=== PATIENT | female | born 1960 | race Hispanic/Latino ===

== ENCOUNTER 2017-06-04 15:16 | Outpatient (CLI) | payer OTHER ==
--- NOTE | 2017-06-04 16:26 | RAD ---
CHEST PA AND LATERAL: History: 56-year-old female with chest pain. Comparison: 09-23-13 FINDINGS: Minimal cardiomegaly. No confluent pneumonia, overt edema, or pleural effusion. IMPRESSION: No acute intrathoracic disease. Minimal cardiomegaly. No evidence for edema, pleural effusion or othe r acute process. POS: [facility]
== END 2017-06-04 15:17 | disposition home or self-care (01) ==
LOC: RAD-FRANK 15:16
PROVIDERS: ATTEND Nurse Practitioner Family
DX: R07.9 Chest pain, unspecified (principal)
CPT/HCPCS: 71046

== ENCOUNTER 2017-10-30 09:44 | Outpatient (CLI) | payer OTHER ==
--- NOTE | 2017-10-30 11:42 | RAD ---
TWO VIEW CHEST: Indication: Cough. Comparison: 06-04-17 FINDINGS: Heart is mildly prominent. Vascular markings are upper normal but stable. No focal infiltrate. No eff usion. Osseous structures are unremarkable with mild degenerative changes in the spine. IMPRESSION: No acute finding in the chest. The chest findings are stable from the prior exam as described above. POS: [facility]
== END 2017-10-30 09:45 | disposition home or self-care (01) ==
LOC: RAD-FRANK 09:44
PROVIDERS: ATTEND Nurse Practitioner Family
DX: R05 Cough (principal)
CPT/HCPCS: 71046